=== PATIENT | female | born 1980 | race Caucasian/White ===

== ENCOUNTER 2023-10-18 10:37 | Outpatient (CLI) | payer BC, SELFPAY | END 2023-10-18 10:38 | disposition home or self-care (01) | LOC: INJ CL 10:42 | PROVIDERS: Visit Provider Family Medicine | DX: M54.16 Radiculopathy, lumbar region (principal); M51.26 Other intervertebral disc displacement, lumbar region; M48.062 Spinal stenosis, lumbar region with neurogenic claudication | CPT/HCPCS: 62323; J0702; Q9966 ==

== ENCOUNTER 2024-08-14 10:24 | Outpatient (CLI) | payer BC, SELFPAY ==
[2024-08-14] MEDS: OXYCODONE 5 MG TABLET 10 MG PO (11:45)
== END 2024-08-14 10:25 | disposition home or self-care (01) ==
LOC: INJ CL 10:25
PROVIDERS: PCP Physician Assistant; Visit Provider Family Medicine
DX: M54.16 Radiculopathy, lumbar region (principal); M48.061 Spinal stenosis, lumbar region without neurogenic claudication
CPT/HCPCS: 64483; A9270; J1100; Q9966